=== PATIENT | female | born 1970 | race American Indian/Alaskan Native ===

== ENCOUNTER 2022-03-27 10:31 | Outpatient (CLI) | payer OTHER ==
--- NOTE | 2022-03-27 11:30 | XRay Report ---
LEFT KNEE 2 VIEW(S) INDICATION / CLINICAL INFORMATION: LEFT KNEE PAIN COMPARISON: None available. FINDINGS: BONES / JOINT(S): No acute fracture or subluxation. No significant arthritis. SOFT TISSUES: No significant abnormality. ADDITIONAL FINDINGS: None. Signer Name: Stanislaw Rodgers MD Signed: 03/27/2022 11:25 AM Workstation Name: [email or web address]
== END 2022-03-27 10:32 | disposition home or self-care (01) ==
LOC: XRAY 10:31
PROVIDERS: ATTEND Internal Medicine
DX: Z02.71 Encounter for disability determination (principal); M25.562 Pain in left knee